=== PATIENT | male | born 1990 | race Caucasian/White ===

== ENCOUNTER 2017-01-15 18:52 | Emergency (ER) | payer OTHER ==
--- NOTE | 2017-01-15 20:10 | RAD ---
Exam: Three-view right finger COMPARISON: None INDICATION: Second finger laceration. FINDINGS: PA and lateral and oblique views of the right second finger were obtained. Soft tissue irregularity is noted along the radial aspect of the finger compatible with soft tissue injury. There is no radiopaque foreign body. Alignment is normal. No fracture is identified. Joint spaces are maintained. IMPRESSION: Soft tissue injury, however no radiopaque foreign body or acute osseous abnormality is identified within the right index finger
[2017-01-15] MEDS ORDERED: CEPHALEXIN 500 MG CAPSULE ONE (20:46)
== END 2017-01-15 21:00 | disposition home or self-care (01) ==
LOC: ED 18:52
DX: S61.210A Laceration without foreign body of right index finger without damage to nail, initial encounter (principal); R03.0 Elevated blood-pressure reading, without diagnosis of hypertension; F17.210 Nicotine dependence, cigarettes, uncomplicated; W29.8XXA Contact with other powered hand tools and household machinery, initial encounter; Y93.H3 Activity, building and construction; Y92.69 Other specified industrial and construction area as the place of occurrence of the external cause; Y99.0 Civilian activity done for income or pay
CPT/HCPCS: 73140; 99283 ×2; 12002 ×2; 64450 ×2; A9270